=== PATIENT | male | born 1930 | race Caucasian/White ===

== ENCOUNTER → 2016-05-22 | Outpatient (CLI) | payer MEDICARE, OTHER ==
--- NOTE | 2016-05-22 10:44 | REP ---
CHEST X-RAY: TWO VIEWS. HISTORY: Cough. Comparison radiographs are from February 16, 2013 and April 29, 2014. FINDINGS: The lungs are symmetrically aerated and clear. Pleural angles are sharp. Heart size is normal. There is tortuosity of the thoracic aorta with some calcification. Degenerative changes are seen in the thoracic spine and right shoulder. IMPRESSION: NO acute cardiopulmonary disease. Signed by Shaan Lemus MD 05/22/2016 01:13 P
== END ==
LOC: M WUC 08:18
DX: R05 Cough (principal); J40 Bronchitis, not specified as acute or chronic

== ENCOUNTER 2017-04-09 09:45 | Inpatient (IN) | payer MEDICARE, OTHER ==
[2017-04-09] MEDS: HYDROCORTISONE 1% CREAM 30 GM TOP (09:00)
[2017-04-09 10:41] LABS: BASO # 0.1 10^3/uL (0.0-0.2); BASO % 0.7 % (0.0-1.0); EOS # 0.1 10^3/uL (0.0-0.50); EOS % 1.6 % (0.0-3.0); HEMATOCRIT 38.2 % (42.0-52.0); IMMATURE GRANULOCYTE % 0.4 % (0-0); LYMPH # 1.4 10^3/uL (1.5-4.5); LYMPH % 16.8 % (24.0-44.0); MEAN CORPUSCULAR HEMOGLOBIN 30.6 pg (27.0-33.0); MEAN CORPUSCULAR VOLUME 89.9 fl (80.0-96.0); MONO # 0.6 10^3/uL (0.0-0.8); MONO % 7.1 % (0.0-5.0); NEUTROPHILS # 5.9 10^3/uL (1.8-7.7); NEUTROPHILS % 73.4 % (36.0-66.0); PLATELET COUNT, AUTOMATED 164 10^3/uL (150-450); RED BLOOD COUNT 4.25 10^6/uL (4.30-6.10); RED CELL DISTRIBUTION WIDTH 12.7 % (11.5-14.5)
[2017-04-09 10:53] LABS: INR 1.02; PROTHROMBIN TIME 13.5 SECONDS (12.4-14.5)
[2017-04-09 11:15] LABS: ALBUMIN 3.6 GM/DL (3.2-5.2); ALBUMIN/GLOBULIN RATIO 1.13 (1.00-1.93); ALKALINE PHOSPHATASE 66 U/L (45-117); ALT/SGPT 22 U/L (12-78); ANION GAP 8 MEQ/L (8-16); AST/SGOT 18 U/L (7-37); BILIRUBIN,DIRECT 0.2 MG/DL (0.0-0.2); BILIRUBIN,TOTAL 0.6 MG/DL (0.2-1.0); BLOOD UREA NITROGEN 17 MG/DL (7-18); CALCIUM LEVEL 8.6 MG/DL (8.8-10.2); CARBON DIOXIDE LEVEL 25 MEQ/L (21-32); CHLORIDE LEVEL 106 MEQ/L (98-107); CPK CREATINE PHOSPHOKINASE 162 U/L (39-308); CREATININE FOR GFR 0.97 MG/DL (0.70-1.30); GLOMERULAR FILTRATION RATE > 60.0 (>35); GLUCOSE, FASTING 147 MG/DL (70-100); LIPASE 66 U/L (73-393); POTASSIUM SERUM 3.9 MEQ/L (3.5-5.1); SODIUM LEVEL 139 MEQ/L (136-145); TOTAL PROTEIN 6.8 GM/DL (6.4-8.2); TROPONIN I < 0.02 NG/ML (< 0.10)
[2017-04-09 11:20] LABS: CK-MB VALUE MASS 2.9 NG/ML (0.0-3.6); MB/CK RELATIVE INDEX 1.79 (< OR =4); NT-PRO BNP 241 PG/ML (<450)
[2017-04-09] MEDS: VALSARTAN 80 MG TAB (DIOVAN) PO (14:40)
[2017-04-09 15:33] LABS: FREE THYROXINE INDEX 3.1 % (1.4-3.8); T UPTAKE 37 % (33-40); THYROXINE (T4) 8.3 UG/DL (4.5-12.0)
[2017-04-09 16:00] LABS: CPK CREATINE PHOSPHOKINASE 148 U/L (39-308); MB/CK RELATIVE INDEX 2.02 (< OR =4); TROPONIN I < 0.02 NG/ML (< 0.10)
[2017-04-09] MEDS: HEPARIN SOD (PORCINE) 5000 UNITS/ML VIAL SC (22:09)
[2017-04-09] MEDS: OMEPRAZOLE 20 MG CAP PO (22:09)
[2017-04-09] MEDS: ATORVASTATIN 20 MG TAB PO (22:19)
[2017-04-10] MEDS: VITAMIN D 1,000 INTERNATIONAL UNITS TABLET PO ×3 (00:12→20:08)
[2017-04-10] MEDS: ACETAMINOPHEN TAB 650MG DOSE (2X325MG) PO ×3 (00:12→20:08)
[2017-04-10 07:30] LABS: HEMATOCRIT 36.4 % (42.0-52.0); HEMOGLOBIN 12.4 g/dl (14.0-18.0); MEAN CORPUSCULAR HEMOGLOBIN 30.7 pg (27.0-33.0); MEAN CORPUSCULAR HGB CONC 34.1 g/dl (32.0-36.5); MEAN CORPUSCULAR VOLUME 90.1 fl (80.0-96.0); PLATELET COUNT, AUTOMATED 160 10^3/uL (150-450); RED BLOOD COUNT 4.04 10^6/uL (4.30-6.10); RED CELL DISTRIBUTION WIDTH 12.8 % (11.5-14.5); WHITE BLOOD COUNT 7.5 10^3/uL (4.0-10.0)
[2017-04-10 07:52] LABS: ANION GAP 7 MEQ/L (8-16); BLOOD UREA NITROGEN 17 MG/DL (7-18); CALCIUM LEVEL 8.5 MG/DL (8.8-10.2); CARBON DIOXIDE LEVEL 27 MEQ/L (21-32); CHLORIDE LEVEL 106 MEQ/L (98-107); CHOLESTEROL LEVEL 110 MG/DL (<200); CHOLESTEROL RISK RATIO 2.156 (<5); CREATININE FOR GFR 0.98 MG/DL (0.70-1.30); GLOMERULAR FILTRATION RATE > 60.0 (>35); GLUCOSE, FASTING 100 MG/DL (70-100); HDL CHOLESTEROL 51 MG/DL (>40); MAGNESIUM LEVEL 1.9 MG/DL (1.8-2.4); NON-HDL-C 59 MG/DL; POTASSIUM SERUM 4.3 MEQ/L (3.5-5.1); SODIUM LEVEL 140 MEQ/L (136-145); TRIGLYCERIDES LEVEL 80 MG/DL (<150)
[2017-04-10] MEDS: HYDROCORTISONE 1% CREAM 30 GM TOP (08:16)
[2017-04-10 08:17] LABS: ESTIMATED AVERAGE GLUCOSE 114 MG/DL (60-110); HEMOGLOBIN A1c 5.6 %
[2017-04-10] MEDS: OMEPRAZOLE 20 MG CAP PO ×2 (08:17→20:08)
[2017-04-10] MEDS: VALSARTAN 80 MG TAB (DIOVAN) PO ×2 (08:17→13:55)
[2017-04-10] MEDS: HEPARIN SOD (PORCINE) 5000 UNITS/ML VIAL SC ×2 (08:18→20:09)
[2017-04-10] MEDS: ASPIRIN 81 MG ENTERIC TAB PO (08:18)
[2017-04-10] MEDS ORDERED: PROHANCE 279.3MG/ML 15ML VIAL (A9576) As Ordered (09:40)
[2017-04-10] MEDS: amLODIPine 5 MG TAB PO (14:06)
[2017-04-10] MEDS: hydrALAZINE INJ 20 MG/ML VIAL IV (14:07)
[2017-04-10] MEDS: ATORVASTATIN 20 MG TAB PO (20:07)
[2017-04-10] MEDS: DOCUSATE SODIUM 100 MG CAP PO (20:08)
[2017-04-11 06:50] LABS: HEMATOCRIT 39.1 % (42.0-52.0); HEMOGLOBIN 12.9 g/dl (14.0-18.0); MEAN CORPUSCULAR HEMOGLOBIN 29.8 pg (27.0-33.0); MEAN CORPUSCULAR VOLUME 90.3 fl (80.0-96.0); PLATELET COUNT, AUTOMATED 175 10^3/uL (150-450); RED BLOOD COUNT 4.33 10^6/uL (4.30-6.10); RED CELL DISTRIBUTION WIDTH 12.7 % (11.5-14.5)
[2017-04-11 07:01] LABS: ANION GAP 8 MEQ/L (8-16); BLOOD UREA NITROGEN 20 MG/DL (7-18); CALCIUM LEVEL 8.7 MG/DL (8.8-10.2); CARBON DIOXIDE LEVEL 26 MEQ/L (21-32); CHLORIDE LEVEL 103 MEQ/L (98-107); CREATININE FOR GFR 1.01 MG/DL (0.70-1.30); GLOMERULAR FILTRATION RATE > 60.0 (>35); GLUCOSE, FASTING 104 MG/DL (70-100); POTASSIUM SERUM 4.1 MEQ/L (3.5-5.1); SODIUM LEVEL 137 MEQ/L (136-145)
[2017-04-11] MEDS: DOCUSATE SODIUM 100 MG CAP PO (08:50)
[2017-04-11] MEDS: VITAMIN D 1,000 INTERNATIONAL UNITS TABLET PO (08:50)
[2017-04-11] MEDS: VALSARTAN 80 MG TAB (DIOVAN) PO (08:50)
[2017-04-11] MEDS: ASPIRIN 81 MG ENTERIC TAB PO (08:50)
[2017-04-11] MEDS: amLODIPine 5 MG TAB PO ×2 (08:50→11:48)
[2017-04-11] MEDS: HEPARIN SOD (PORCINE) 5000 UNITS/ML VIAL SC (08:51)
[2017-04-11] MEDS: OMEPRAZOLE 20 MG CAP PO (08:51)
[2017-04-11] MEDS: HYDROCORTISONE 1% CREAM 30 GM TOP (08:51)
[2017-04-11] MEDS: hydrALAZINE INJ 20 MG/ML VIAL IV (11:48)
[2017-04-12] MEDS ORDERED: amLODIPine 10 MG TAB PO (09:00)
== END 2017-04-11 12:57 | disposition home or self-care (01) | DRG 93 ==
LOC: M ED 09:45 → M ED INP 14:50
DX: R27.0 Ataxia, unspecified (principal); I10 Essential (primary) hypertension; I65.23 Occlusion and stenosis of bilateral carotid arteries; E78.5 Hyperlipidemia, unspecified; Z96.643 Presence of artificial hip joint, bilateral; Z96.652 Presence of left artificial knee joint; Z79.82 Long term (current) use of aspirin; Z79.899 Other long term (current) drug therapy; Z95.9 Presence of cardiac and vascular implant and graft, unspecified

== ENCOUNTER → 2018-07-20 | Outpatient (REF) ==
[~2018-07-20] MED LIST: AMLO10TA5 PO; ASPI81TA26 PO; DIOV160T6 PO; HYDR1CRE2 TOP; OMEP20CA3 PO; OMEP40CA2 PO; SIMV40TA2 PO; VALS1TAB66 PO; VITA100066 PO; ZOCO80TA PO
[2018-07-20 07:50] LABS: HEMATOCRIT 33.4 % (42.0-52.0); HEMOGLOBIN 11.1 g/dl (13.5-17.5); MEAN CORPUSCULAR HEMOGLOBIN 30.5 pg (27.0-33.0); MEAN CORPUSCULAR HGB CONC 33.2 g/dl (32.0-36.5); MEAN CORPUSCULAR VOLUME 91.8 fl (80.0-96.0); PLATELET COUNT, AUTOMATED 230 10^3/uL (150-450); RED BLOOD COUNT 3.64 10^6/uL (4.30-6.10); WHITE BLOOD COUNT 8.3 10^3/uL (4.0-10.0)
[2018-07-20 08:19] LABS: ALBUMIN 3.2 GM/DL (3.2-5.2); ALT/SGPT 28 U/L (12-78); BILIRUBIN,TOTAL 0.6 MG/DL (0.2-1.0); BLOOD UREA NITROGEN 27 MG/DL (7-18); CALCIUM LEVEL 8.5 MG/DL (8.8-10.2); CARBON DIOXIDE LEVEL 24 MEQ/L (21-32); CHLORIDE LEVEL 99 MEQ/L (98-107); CREATININE FOR GFR 1.15 MG/DL (0.70-1.30); GLOMERULAR FILTRATION RATE > 60.0 (>35); GLUCOSE, FASTING 97 MG/DL (70-100); POTASSIUM SERUM 4.2 MEQ/L (3.5-5.1); SODIUM LEVEL 130 MEQ/L (136-145); TOTAL PROTEIN 6.6 GM/DL (6.4-8.2)
== END ==
LOC: SKLAB2 08:45
PROVIDERS: ATTEND Internal Medicine
DX: I10 Essential (primary) hypertension (principal)

== ENCOUNTER → 2018-07-26 | Outpatient (REF) ==
[2018-07-26 08:26] LABS: PERCENT SATURATION 34.9 % (19.7-50.0); THYROID STIMULATING HORMONE 4.87 uIU/ML (0.358-3.740)
[2018-07-26 09:51] LABS: FOLATE 15.8 NG/ML (>5.4)
== END ==
LOC: SKLAB2 07:00
PROVIDERS: ATTEND Internal Medicine
DX: D64.9 Anemia, unspecified (principal)

== ENCOUNTER → 2018-07-27 | Outpatient (REF) ==
[2018-07-27 12:39] LABS: BLOOD UREA NITROGEN 21 MG/DL (7-18); CALCIUM LEVEL 8.9 MG/DL (8.8-10.2); CARBON DIOXIDE LEVEL 27 MEQ/L (21-32); CHLORIDE LEVEL 102 MEQ/L (98-107); CREATININE FOR GFR 0.87 MG/DL (0.70-1.30); GLOMERULAR FILTRATION RATE > 60.0 (>35); GLUCOSE, FASTING 96 MG/DL (70-100); POTASSIUM SERUM 4.6 MEQ/L (3.5-5.1); SODIUM LEVEL 134 MEQ/L (136-145)
== END ==
LOC: SKLAB2 10:43
PROVIDERS: ATTEND Internal Medicine
DX: E87.0 Hyperosmolality and hypernatremia (principal)

== ENCOUNTER → 2018-08-05 | Outpatient (REF) | payer MEDICARE, OTHER ==
[2018-08-05 07:46] LABS: BASO # 0.1 10^3/uL (0.0-0.2); BASO % 0.7 % (0.0-1.0); EOS # 0.3 10^3/uL (0.0-0.50); EOS % 3.8 % (0.0-3.0); HEMATOCRIT 32.7 % (42.0-52.0); HEMOGLOBIN 11.1 g/dl (13.5-17.5); LYMPH # 1.8 10^3/uL (1.5-4.5); LYMPH % 24.6 % (24.0-44.0); MEAN CORPUSCULAR HEMOGLOBIN 31.3 pg (27.0-33.0); MEAN CORPUSCULAR HGB CONC 33.9 g/dl (32.0-36.5); MEAN CORPUSCULAR VOLUME 92.1 fl (80.0-96.0); MONO # 0.7 10^3/uL (0.0-0.8); MONO % 9.4 % (0.0-5.0); NEUTROPHILS # 4.5 10^3/uL (1.8-7.7); PLATELET COUNT, AUTOMATED 187 10^3/uL (150-450); RED BLOOD COUNT 3.55 10^6/uL (4.30-6.10); WHITE BLOOD COUNT 7.4 10^3/uL (4.0-10.0)
== END ==
LOC: SKLAB2 06:54
PROVIDERS: ATTEND Internal Medicine
DX: R21 Rash and other nonspecific skin eruption (principal)

== ENCOUNTER → 2018-08-11 | Outpatient (REF) ==
[2018-08-11 12:03] LABS: HEMATOCRIT 36.1 % (42.0-52.0); HEMOGLOBIN 11.6 g/dl (13.5-17.5); MEAN CORPUSCULAR HEMOGLOBIN 29.9 pg (27.0-33.0); MEAN CORPUSCULAR HGB CONC 32.1 g/dl (32.0-36.5); PLATELET COUNT, AUTOMATED 181 10^3/uL (150-450); RED BLOOD COUNT 3.88 10^6/uL (4.30-6.10); WHITE BLOOD COUNT 7.1 10^3/uL (4.0-10.0)
[2018-08-11 12:38] LABS: ERYTHROCYTE SEDIMENTATION RATE 36 mm/hr (0-30)
== END ==
LOC: SKLAB2 09:32
PROVIDERS: ATTEND Internal Medicine
DX: R23.8 Other skin changes (principal)

== ENCOUNTER → 2018-09-09 | Outpatient (REF) | payer MEDICARE, OTHER ==
[2018-09-09 09:04] LABS: FREE T4 1.02 NG/DL (0.76-1.46); THYROID STIMULATING HORMONE 5.52 uIU/ML (0.358-3.740)
== END ==
LOC: SKLAB2 07:30
PROVIDERS: ATTEND Internal Medicine
DX: E07.9 Disorder of thyroid, unspecified (principal)

== ENCOUNTER → 2018-11-18 | Outpatient (REF) | payer MEDICARE, OTHER ==
[~2018-11-18] MED LIST changes: +OMEP1CAP73 PO; -OMEP20CA3 PO; -OMEP40CA2 PO; +OMEP40CA97 PO; -SIMV40TA2 PO; +SIMV40TA20 PO
[2018-11-18 18:07] LABS: AMORPHOUS SEDIMENT SMALL (NEGATIVE); APPEARANCE, URINE CLEAR (CLEAR); BACTERIA, URINE AUTO NEGATIVE (NEGATIVE); BILIRUBIN, URINE AUTO NEGATIVE (NEGATIVE); BLOOD, URINE BLOOD NEGATIVE (NEGATIVE); COLOR, URINE YELLOW (YELLOW); GLUCOSE, URINE (UA) AUTO NEGATIVE (NEGATIVE); KETONE, URINE AUTO NEGATIVE (NEGATIVE); LEUKOCYTE ESTERASE, URINE AUTO NEGATIVE (NEGATIVE); MUCUS, URINE SMALL (NEGATIVE); NITRITE, URINE AUTO NEGATIVE (NEGATIVE); PROTEIN, URINE AUTO NEGATIVE (NEGATIVE); RBC, URINE AUTO 1 /HPF (0-3); SPECIFIC GRAVITY URINE AUTO 1.016 (1.002-1.035); SQUAMOUS EPITHELIAL CELL UR AU 0 /HPF (0-6); UROBILINOGEN, URINE AUTO 0.2 mg/dL (0.0-2.0); WBC, URINE AUTO 1 /HPF (0-3)
== END ==
LOC: M LAB REF 16:52
PROVIDERS: ATTEND Physician Assistant
DX: N39.0 Urinary tract infection, site not specified (principal)